=== PATIENT | male | born 1995 | race Two or more races ===

== ENCOUNTER 2017-02-12 08:02 | Emergency (ER) | payer OTHER ==
[2017-02-12 09:28] LABS: CALCIUM 9.9 mg/dL (8.5-10.1); CARBON DIOXIDE 24.3 mmol/L (21-32); CHLORIDE SERUM 103 mmol/L (98-107); CREATININE SERUM 0.9 mg/dL (0.7-1.3); GFR1 > 60 mL/min; GLUCOSE SERUM 99 mg/dL (74-106); POTASSIUM SERUM 3.7 mmol/L (3.5-5.1); SODIUM SERUM 139 mmol/L (136-145)
[2017-02-12 09:29] LABS: PLATELET COUNT 273 x10^3mcL (130-400); RED CELL DISTRIBUTION WIDTH 12.6 % (11.5-14.5)
[2017-02-12 09:30] LABS: BASOPHIL % 0 % (0-2)
[2017-02-12 09:34] LABS: ALBUMIN 4.7 g/dL (3.4-5.0); ALKALINE PHOSPHATASE 86 U/L (46-116); ALT/SGPT 21 U/L (16-63); AST/SGOT 21 U/L (15-37); BILIRUBIN TOTAL 1.32 mg/dL (0.20-1.00); LIPASE 83 IU/L (73-393)
[2017-02-12 09:40] LABS: AMYLASE 129 U/L (25-115); TOTAL PROTEIN, SERUM 8.9 g/dL (6.4-8.2)
[2017-02-12 12:49] VITALS: BP 126/73
== END 2017-02-12 12:49 | disposition home or self-care (01) ==
LOC: ED 08:02
PROVIDERS: Emergency Medicine
DX: R10.9 Unspecified abdominal pain (principal); R11.10 Vomiting, unspecified; R19.7 Diarrhea, unspecified; E86.0 Dehydration
CPT/HCPCS: 83880; 87046; 87046-59; J1885; J2405; J7030